=== PATIENT | female | born 1950 | race Caucasian/White ===

== ENCOUNTER 2022-07-20 15:50 | Inpatient (IN) | payer MEDICARE, SELFPAY ==
[2022-07-20] VITALS (8 sets, daily range): BP systolic 148–173; BP diastolic 85–100; PULSE 81–90; RESP 12–18; TEMP 36.4–37.5; O2SAT 95–100; BMI 21.1; BMI 22.1
--- NOTE | 2022-07-20 16:25 | CT_ITS ---
STUDY: CT BRAIN WITHOUT CONTRAST REASON FOR EXAM: Female, 72 years old. confusion,FALLS RADIATION DOSAGE (If Supplied By Facility): CTDIvol = ( 44.99 ) mGy, DLP = ( 796.11 ) mGycm TECHNIQUE: Transaxial CT imaging of the brain was performed without administration of intravenous contrast material. Individualized dose optimization techniques were used for this CT. COMPARISON: No relevant priors. FINDINGS: Normal soft tissue structures. Normal calvarium. There is mild cerebral atrophy with widening of the extra-axial spaces and ventricular dilatation. There are areas of decreased attenuation within the white matter tracts of the supratentorial brain, consistent with microvascular disease changes. Normal basal ganglia and thalami. Normal brainstem. Normal cerebellum. There is no intracranial hemorrhage. There are no findings of an acute ischemic infarction. Normal visualized paranasal sinuses. CT/Brain/Head without Contrast IMPRESSION: Chronic involutional changes of the brain. Electronically Signed: Marcello Saldaña MD at 17:50 EST ,
--- NOTE | 2022-07-20 16:26 | EKG12_ITS ---
Test Reason : Blood Pressure : / mmHG Vent. Rate : 083 BPM Atrial Rate : 083 BPM P-R Int : 204 ms QRS Dur : 074 ms QT Int : 362 ms P-R-T Axes : 062 -71 070 degrees QTc Int : 425 ms Normal sinus rhythm Left axis deviation Pulmonary disease pattern Abnormal ECG Confirmed by MAAME WHITING, JENNY ([id number]), newspaper photo editor ANAMIKA ALMONTE ([id number]) on 07/24/2022 11:10:15 AM Referred By: JEREMY Confirmed By:VIOLET ISABEL MD
--- NOTE | 2022-07-20 16:30 | EX.ED.DYSGE1 ---
HPI History of Present Illness Chief Complaint: Weakness Informant: patient and family Onset/Context/Timing Onset: Weeks Narrative Narrative: Patient presents with family secondary to generalized weakness and increasing falls. They feel she needs placement as they are having trouble caring for her. Daughter states that for the past couple years she apparently has been noncompliant with her medications. She was showing some signs of dementia and family was unaware that she was not taking her medication appropriately. The weekend after she was admitted to [facility] secondary to high blood sugar. At that time arrangements were reportedly made for home physical therapy and Occupational Therapy and family wanted to try to care for her at home. They have only had 1 or 2 visits from any therapists and patient has continued to progress in her weakness. She has fallen this week. I am unable to review the discharge summary or notes from [facility]. [facility] Medical History Diabetes Hyperlipidemia Hypertension Memory changes Home Medications Lantus Solostar U-100 Insulin 15 units OTHER QHS 07/20/22 [History Last Taken Unknown] Lantus Solostar U-100 Insulin 28 units OTHER BREAKFAST 07/20/22 [History Last Taken Unknown] Vitamin D3 1 tab PO/SL DAILY 07/20/22 [History Last Taken Unknown] amlodipine 10 mg PO/SL DAILY 07/20/22 [History Last Taken Unknown] atorvastatin 20 mg PO/SL DAILY 07/20/22 [History Last Taken Unknown] memantine 5 mg PO/SL BID 07/20/22 [History Last Taken Unknown] vitamin L40-zoauv acid 1 tab PO/SL DAILY 07/20/22 [History Last Taken Unknown] Allergy/AdvReac Type Severity Reaction Status Date / Time Penicillins Allergy Rash Verified 07/20/22 15:51 Social History Smoking Status: Never smoker ROS ROS ED Constitutional Constitutional ED: Denies chills or fever(s) Eyes Eyes: Denies change in vision or discharge from eye(s) ENT ENT ED: Denies discharge from eye(s), rhinorrhea or sore throat Cardiovascular Cardiovascular: Denies chest pain or palpitations Respiratory/Chest Respiratory/Chest: Denies cough or dyspnea Gastrointestinal Gastrointestinal: Denies abdominal pain, diarrhea, nausea or vomiting Genitourinary Genitourinary ED: Denies dysuria Musculoskeletal Musculoskeletal: Reports extremity pain; Denies back pain Integumentary Denies Abrasions or rash Neurologic Neurologic: Reports weakness; Denies headache(s) Psychiatric Psychiatric: Denies anxiety or depression Allergic/Immunologic Allergic/Immunologic ED: Denies lip swelling or urticaria EXAM Physical Exam Const Vital Signs: 07/20/22 15:52 07/20/22 16:50 07/20/22 16:54 Temperature 97.5 F L Temperature Source Temporal Pulse Rate 83 84 Respiratory Rate 16 12 Respiratory Effort Normal Non-Labored Respiratory Pattern Normal Blood Pressure 148/100 H 155/85 H Blood Pressure Mean 116 108 Pulse Ox 100 Oxygen Delivery Method Room Air Positive well nourished and well developed General Appearance ED: well developed HEENT Reports normocephalic and head/scalp atraumatic Eyes PERRL and EOMs intact bilaterally Neck supple Chest Wall inspection of chest normal and palpation of chest normal Resp normal respiratory effort and clear to auscultation bilaterally Cardio regular rate and regular rhythm GI normal to inspection, nondistended, normoactive bowel sounds Palpation: soft Back/Spine no CVA tenderness Extremity normal to inspection Neuro no sensory deficits noted Neuro Narrative: Patient alert but slow to answer any questions. Very slow in her movements. Right leg weakness is noted on testing of extremities. Sensorium / Orientation: alert Psych mental status grossly normal Skin no rashes or lesions noted MDM MDM MDM Narrative Medical decision making narrative: EKG, lab work obtained. Patient sent for CT scan of the head and lumbar spine x-rays. IV fluids given. Lab Data Attestation: I reviewed the patient's lab results. Labs: Laboratory Results - last 24 hr 07/20/22 07/20/22 16:52 16:52 WBC 7.9 RBC 4.83 Hgb 13.9 Hct 43.3 MCV 89.6 MCH 28.8 MCHC 32.1 RDW Std Deviation 41.5 RDW Coeff of Baron 12.6 Plt Count 373 MPV 9.3 Immature Gran % (Auto) 0.500 Neut % (Auto) 62.7 Lymph % (Auto) 26.0 Pitkin % (Auto) 8.4 Eos % (Auto) 1.5 Baso % (Auto) 0.9 Absolute Neuts (auto) 4.9 Absolute Lymphs (auto) 2.05 Nucleated RBC % 0 Sodium 137 Potassium 4.8 Chloride 106 Carbon Dioxide 27.0 Anion Gap 4 L BUN 25 H Creatinine 1.04 H Estim Creat Clear Calc 44.00 Est GFR (MDRD) Af Amer 67 Est GFR (MDRD) Non-Af 55 L BUN/Creatinine Ratio 24.0 H Glucose 282 H Calcium 10.1 Radiography Diagnostic Testing: Clinical Impression(s) from Imaging Studies Brain CT 07/20/22 16:25 IMPRESSION: Chronic involutional changes of the brain. Electronically Signed: Marcello Saldaña MD at 17:50 EST Reading Location ID and State: [place] / [place] Tel , Service support , Lumbar Spine X-Ray 07/20/22 17:00 IMPRESSION: Mild dextroscoliosis with degenerative disc disease per Electronically Signed: Marcello Saldaña MD at 17:51 EST Reading Location ID and State: [place] / [place] Tel , Service support , EKG Initial EKG: Attestation: I personally reviewed and interpreted this EKG as follows: Interpretation: Sinus Rhythm (Sinus at 83 with no acute ischemia.) Treatment and Re-Evaluation Narrative: On repeat evaluation patient resting comfortably. Test results discussed with patient and family. CBC is unremarkable. Chemistry studies significant for BUN of 25 and creatinine 1.04. Her blood sugar is 282. Head CT shows chronic changes. Lumbar spine x-rays per my interpretation reveal chronic changes. Radiology interpretation is also reviewed. Patient required 2 person assist to get out of wheelchair and into the bed. She has had significant functional decline at home with falls. She will require therapy and placement. I will speak with hospitalist regarding admission. Discharge Plan Triage Chief Complaint: Weakness ED Provider: Mei Rachel Dx/Rx/DC Orders Clinical Impression: Declining functional status, Falls, Weakness Prescriptions: No Action Lantus Solostar U-100 Insulin 28 units OTHER BREAKFAST Lantus Solostar U-100 Insulin 15 units OTHER QHS Vitamin D3 1 tab PO/SL DAILY amlodipine 10 mg PO/SL DAILY atorvastatin 20 mg PO/SL DAILY memantine 5 mg PO/SL BID vitamin K53-rlroc acid 1 tab PO/SL DAILY Primary Care Provider: Ron Martin Referrals: Ron Martin MD [Primary Care Provider] - Disposition Disposition: Acute Care Hospital [facility]
[2022-07-20] MEDS: 0.9% Normal Saline 1,000 ML 150 ML IV ×2 (16:53→23:34)
[2022-07-20 16:59] LABS: Absolute Lymphocyte Count 2.05 X10^3/uL (0.83-4.51); Absolute Neutrophil Count 4.9 X10^3/uL (2.0-7.7); Basophil# 0.07 X10^3/uL; Basophil% 0.9 % (0-1); Eosinophil# 0.12 X10^3/uL; Eosinophils% 1.5 % (0-5); Hematocrit 43.3 % (37-47); Hemoglobin 13.9 g/dL (12.0-15.0); Lymphocyte # 2.05 X10^3/ul (0.83-4.51); Mean Corp Hgb Conc 32.1 g/dL (32-36); Mean Corpuscular Hgb 28.8 pg (27.0-32.0); Mean Corpuscular Volume 89.6 fL (81-99); Mean Platelet Vol. 9.3 fl (6.2-12.0); Monocyte# 0.66 X10^3/uL; Monocyte% 8.4 % (0-10); NRBC Flagged by Analyzer 0 % (0-5); Neutrophil # 4.93 X10^3/uL (2.7-7.7); Neutrophil % 62.7 % (47-70); Platelet Count 373 K/mm3 (150-450); RBC Distribution Width CV 12.6 % (11.6-14.6); RBC Distribution Width SD 41.5 fl (35.1-43.9); Red Blood Count 4.83 M/mm3 (4.2-5.4); White Blood Count 7.9 K/mm3 (4.4-11.0)
--- NOTE | 2022-07-20 17:00 | RAD_ITS ---
STUDY: X-RAY - LUMBAR SPINE REASON FOR EXAM: Female, 72 years old. right leg weakness TECHNIQUE: 3 view(s) of the lumbar spine were obtained. COMPARISON: None FINDINGS: Normal lumbar lordosis. Mild dextroscoliosis centered at L2/L3. There is a normal alignment of the vertebrae. There is multilevel endplate spondylosis of the lumbar vertebrae. There is multi-level degenerative disc disease with multi-level disc space narrowing. Facet hypertrophy in the lower lumbar spine. The soft tissue structures are unremarkable. RAD/Lumbar Spine 2 or 3 Views IMPRESSION: Mild dextroscoliosis with degenerative disc disease per Electronically Signed: Marcello Saldaña MD at 17:51 EST ,
[2022-07-20 17:34] LABS: Anion Gap 4 (5-15); BUN 25 mg/dL (7-18); Calcium,Total 10.1 mg/dL (8.5-10.1); Chloride 106 mmol/L (98-107); Creatinine, Serum 1.04 mg/dL (0.55-1.02); EST Glomerular Filtration Rate 55 mL/min (>60); Est Glom Filt Rate - Afr Amer 67 mL/min (>60); Glucose 282 mg/dL (74-106); Potassium 4.8 mmol/L (3.5-5.1); Sodium Level 137 mmol/L (136-145)
--- NOTE | 2022-07-20 18:15 | PCM.HP.STD ---
HPI - General General Date of Admission: 07/20/22 Date of Service: 07/20/22 Chief Complaint: Generalised weakness, inability to walk - over the last few days. HPI Narrative LORENA SEN, is a 72 F who presents with the above. Patient is a 72-year-old with past medical history of cognitive impairment, not formally diagnosed with dementia, type II DM who was recently discharged from [facility] on 12 July. Patient had gone in with confusion and was found to have hyperglycemia. Her HbA1c was 19. It was realized that patient was not able to manage her medications at that time. At time of discharge, she was given the option of discharge to [facility]pc facility but family decided to take over her care. Since her discharge, patient has been falling, has had trouble standing and has been confused. She fell 2 days prior to admission in the bathroom. She was sent to the [facility] emergency room, she was felt that she could go home to continue with home PT and OT. Physical therapy evaluated her at home yesterday. Patient was found not to be able to stand on her right leg. She was apparently able to walk a couple of days ago. she has an upcoming neurology appointment with Dr. Bajwa in the [facility] in August 2022. Patient's family is unable to take care of her at this point has she lives with her who is also advancing age. History was obtained mainly from patient's and daughter as patient was confused and oriented only to self. In the ED, vitals showed blood pressure 148/100, heart rate 83, respiratory 15, temperature 97.5, she was saturating 100% on room air. CBCD was unremarkable. CMP showed BUN of 25, creatinine 1.04. Blood sugar was 282. Urine was slightly cloudy, glucose 1000, nitrite negative, leukocyte Estrace 25, WBC 0-5, bacteria 1+ CT of the brain showed chronic delusional changes. Lumbar spine x-ray showed mild dextroscoliosis with degenerative disc disease. [facility] Medical History Diabetes Hyperlipidemia Hypertension Memory changes Home Medications amlodipine 10 mg tablet 10 mg PO DAILY blood pressure 07/20/22 [History Last Taken 07/20/22] atorvastatin 20 mg tablet 20 mg PO DAILY cholesterol 07/20/22 [History Last Taken 07/20/22] cholecalciferol (vitamin D3) 25 mcg (1,000 unit) tablet (Vitamin D3) 25 mcg PO DAILY supplement 07/20/22 [History Last Taken 07/20/22] cyanocobalamin (vitamin B-12) 500 mcg tablet 500 mcg PO DAILY supplement 07/20/22 [History Last Taken 07/20/22] insulin degludec 100 unit/mL (3 mL) subcutaneous pen (Tresiba FlexTouch U-100 insulin) 15 unit subcut QPM DIABETES 07/20/22 [History Last Taken 07/19/22] insulin degludec 100 unit/mL (3 mL) subcutaneous pen (Tresiba FlexTouch U-100 insulin) 28 unit subcut DAILY diabetes 07/20/22 [History Last Taken 07/20/22] memantine 5 mg tablet 5 mg PO BID alzheimers 07/20/22 [History Last Taken 07/20/22] Allergy/AdvReac Type Severity Reaction Status Date / Time Penicillins Allergy Rash Verified 07/20/22 15:51 Family History (Updated 07/20/22 @ 23:[address] Deirdre Kirk MD) Mother CVA (cerebral vascular accident) Father Hodgkins lymphoma Social History (Updated 07/20/22 @ 23:[address] Deirdre Kirk MD) household members: spouse housing: apartment Smoking Status: Never smoker alcohol intake: never ROS Review of Systems ROS Unobtainable: due to encephalopathy Vital Signs Vital Signs Vital Signs: 07/20/22 15:52 07/20/22 16:50 07/20/22 16:54 Temperature 97.5 F L Temperature Source Temporal Pulse Rate 83 84 Respiratory Rate 16 12 Respiratory Effort Normal Non-Labored Respiratory Pattern Normal Blood Pressure 148/100 H 155/85 H Blood Pressure Mean 116 108 Pulse Ox 100 Oxygen Delivery Method Room Air 07/20/22 18:00 Temperature Temperature Source Pulse Rate 81 Respiratory Rate Respiratory Effort Respiratory Pattern Blood Pressure 157/97 H Blood Pressure Mean 117 Pulse Ox Oxygen Delivery Method Weight Weight: 57.606 kg Body Mass Index (BMI) 21.1 Physical Exam Narrative Physical exam: General: Alert, confused, alert oriented only to self, not to place or time HEENT: Atraumatic Oral: Moist Mucosa Neck: Supple Lungs: Diminished to auscultation Cardiovascular: HS I+II, regular, no murmurs Abdomen: Bowel Sounds Present, Soft, Non Tender Extremities: No edema Skin: No rashes, No breakdown Neurological: Cranial nerves II through XII intact, power is 5/5 in upper extremities, power in the upper extremities, normal tone. Power in right lower extremity is 1/5, increased tone Psych/Mental Status: Appropriate Results Lab / Micro Data Result Diagrams: 07/20/22 16:52 07/20/22 16:52 Labs: Laboratory Results - last 24 hr 07/20/22 16:52: WBC 7.9, RBC 4.83, Hgb 13.9, Hct 43.3, MCV 89.6, MCH 28.8, MCHC 32.1, RDW Std Deviation 41.5, RDW Coeff of Baron 12.6, Plt Count 373, MPV 9.3, Immature Gran % (Auto) 0.500, Neut % (Auto) 62.7, Lymph % (Auto) 26.0, Anderson % (Auto) 8.4, Eos % (Auto) 1.5, Baso % (Auto) 0.9, Absolute Neuts (auto) 4.9, Absolute Lymphs (auto) 2.05, Nucleated RBC % 0 07/20/22 16:52: Sodium 137, Potassium 4.8, Chloride 106, Carbon Dioxide 27.0, Anion Gap 4 L, BUN 25 H, Creatinine 1.04 H, Estim Creat Clear Calc 44.00, Est GFR (MDRD) Af Amer 67, Est GFR (MDRD) Non-Af 55 L, BUN/Creatinine Ratio 24.0 H, Glucose 282 H, Calcium 10.[address] 07/20/22 16:25 IMPRESSION: Chronic involutional changes of the brain. Electronically Signed: Marcello Saldaña MD at 17:50 EST Reading Location ID and State: [id number] / [employer] Tel , Service support , Lumbar Spine X-Ray 07/20/22 17:00 IMPRESSION: Mild dextroscoliosis with degenerative disc disease per Electronically Signed: Marcello Saldaña MD at 17:51 EST Reading Location ID and State: [id number] / Tel , Service support , Assessment & Plan Assessment/Plan (1) Weakness: (2) Falls: PLAN: Plan 1. Acute onset of right lower extremity weakness likely secondary to disc herniation Will rule out intracranial pathology Will admit to MedSurg, MRI of the lumbar spine as well as MRI of the brain PT/OT to evaluate and treat 2. Confusion, in a patient with cognitive impairment and will follow history of dementia Brain CT showed chronic changes Will check TSH, vitamin B12, MRI brain Continue on Namenda 3. Type II DM, continue current regimen as well as insulin sliding scale blood glucose checks 4. DVT PPx- Heparin SC I discussed and explained in details the various types of CODE STATUS-full code, DNR CCA, DNR CC. Patient's family stated that patient will want to be a full code and want aggressive cardiopulmonary resuscitation in the event of an arrest. Time spent discussing CODE STATUS 18 minutes Charges/Coding Visit Charges Inpatient E&M: 87829 Init Hosp L3 Procedures Hospitalists Procedures: 27858 Advncd Care Plan 30 Min
[2022-07-20 19:45] LABS: Mucous, Urine 0 SEEN /hpf (<or=2+); Red Blood Cells-Urine 0 SEEN /hpf (0-5)
[2022-07-20 19:56] LABS: Color, Urine Yellow (Yellow); Glucose, Dipstick 1000 mg/dl (Normal); Ketone-Dipstick Negative (Negative); Leukocyte Esterase-Dipstick 25 /ul (Negative); Nitrite-Dipstick Negative (Negative); Occult Blood-Urine Negative /ul (Negative); Protein-Dipstick Negative (Negative); Specific Gravity, Urine 1.015 (1.002-1.030); Urine Bilirubin Dipstick Negative (Negative); Urine Clarity Sl. Cloudy (Clear); Urine Urobilinogen Normal (Normal)
[2022-07-20 20:15] LABS: Bacteria 1+ /hpf (None Seen); Squamous Epithelial Cells - UA 0-5 SEEN /hpf (5-10); White Blood Cells 0-5 SEEN /hpf (0-5); Yeast-Urine 3+ /hpf (None Seen)
[2022-07-20 22:05] LABS: Bedside Glucose 196 mg/dL (74-106)
[2022-07-20] MEDS: Insulin Glargine-YFGN 100 UNIT/ML Pen 15 UNIT SC (23:22)
[2022-07-20] MEDS: Atorvastatin Calcium 20 MG Tablet PO (23:34)
[2022-07-20] MEDS: Heparin Injection (Vial) 5,000 UNIT/ML VIAL 5000 UNIT SC (23:34)
[2022-07-20] MEDS: Memantine Hydrochloride 5 MG Tablet PO (23:34)
[2022-07-20] MEDS: Insulin Lispro 100 UNIT/ML INSULN.PEN SC (23:37)
[2022-07-21] VITALS (7 sets, daily range): BP systolic 133–160; BP diastolic 81–96; PULSE 83–91; RESP 15–20; TEMP 36.4–37.2; O2SAT 95–98; BMI 22.1
[2022-07-21 00:26] LABS: Bedside Glucose 192 mg/dL (74-106)
[2022-07-21 00:53] LABS: Thyroid Stim Hormone (TSH) 1.11 uIU/mL (0.358-3.74)
[2022-07-21] MEDS: 0.9% Normal Saline 1,000 ML 150 ML IV (06:12)
[2022-07-21] MEDS: Heparin Injection (Vial) 5,000 UNIT/ML VIAL 5000 UNIT SC ×3 (06:14→21:48)
[2022-07-21 07:05] LABS: Absolute Lymphocyte Count 2.18 X10^3/uL (0.83-4.51); Absolute Neutrophil Count 4.4 X10^3/uL (2.0-7.7); Basophil# 0.05 X10^3/uL; Basophil% 0.7 % (0-1); Eosinophil# 0.12 X10^3/uL; Eosinophils% 1.7 % (0-5); Hematocrit 41.3 % (37-47); Hemoglobin 13.4 g/dL (12.0-15.0); Lymphocyte # 2.18 X10^3/ul (0.83-4.51); Lymphocyte % 30.3 % (19-41); Mean Corp Hgb Conc 32.4 g/dL (32-36); Mean Corpuscular Hgb 28.7 pg (27.0-32.0); Mean Corpuscular Volume 88.4 fL (81-99); Mean Platelet Vol. 8.8 fl (6.2-12.0); Monocyte# 0.47 X10^3/uL; Monocyte% 6.5 % (0-10); NRBC Flagged by Analyzer 0 % (0-5); Neutrophil # 4.36 X10^3/uL (2.7-7.7); Neutrophil % 60.5 % (47-70); Platelet Count 342 K/mm3 (150-450); RBC Distribution Width CV 12.6 % (11.6-14.6); RBC Distribution Width SD 40.9 fl (35.1-43.9); Red Blood Count 4.67 M/mm3 (4.2-5.4); White Blood Count 7.2 K/mm3 (4.4-11.0)
[2022-07-21 07:25] LABS: Bedside Glucose 195 mg/dL (74-106)
[2022-07-21 07:37] LABS: ALB/GLOB Ratio 0.7 RATIO (0.9-2.4); AST(SGOT) 15 U/L (15-37); Alanine Aminotransfer ALT/SGPT 22 U/L (13-56); Albumin, Serum 2.8 g/dL (3.2-5.0); Alkaline Phosphatase 106 U/L (45-117); Anion Gap 6 (5-15); BUN 17 mg/dL (7-18); BUN/Creat Ratio 21.6 RATIO (10-20); Chloride 106 mmol/L (98-107); Creatinine, Serum 0.79 mg/dL (0.55-1.02); EST Glomerular Filtration Rate 76 mL/min (>60); Est Glom Filt Rate - Afr Amer 92 mL/min (>60); Estimated Creatinine Clearance 43.91 ml/min; Globulin 3.8 g/dL (2.2-4.2); Glucose 212 mg/dL (74-106); Potassium 3.3 mmol/L (3.5-5.1); Protein, Total 6.6 g/dL (6.4-8.2); Sodium Level 137 mmol/L (136-145)
[2022-07-21] MEDS: Potassium Chloride Oral Tablet 20 MEQ 40 MEQ PO (08:38)
[2022-07-21] MEDS: amLODIPine 10 MG Tablet PO (08:38)
[2022-07-21] MEDS: Memantine Hydrochloride 5 MG Tablet PO ×2 (08:38→22:52)
[2022-07-21] MEDS: Insulin Glargine-YFGN 100 UNIT/ML Pen 28 UNIT SC (08:38)
[2022-07-21] MEDS: Cholecalciferol (VIT D3) 25 MCG TABLET (1,000 UNITS) PO (08:38)
[2022-07-21] MEDS: Cyanocobalamin 500 MCG Tablet PO (08:38)
[2022-07-21] MEDS: Insulin Lispro 100 UNIT/ML INSULN.PEN SC ×4 (08:39→22:02)
--- NOTE | 2022-07-21 10:30 | MRI_ITS ---
ACR Level 3 findings have been noted. An addendum which confirms receipt of the report will follow. HISTORY: Generalized weakness, falls. TECHNIQUE: Multiplanar and multisequence MR images of the brain were obtained without contrast. 291 images. COMPARISON: CT prior day. FINDINGS: BRAIN PARENCHYMA: Small zones and foci of restricted diffusion in the left thalamus. Moderate zone of restricted diffusion in the left occipital cortex. Moderate chronic white matter changes. No acute intracranial hemorrhage identified. CSF SPACES: Mild sulcal effacement secondary to cytotoxic edema in the left occipital lobe. Generalized volume loss. No significant midline shift or effacement of the basal cisterns.No extra-axial fluid collection. VASCULAR SYSTEM: Diminutive appearance of the left posterior cerebral artery. OTHER: 1.7 x 1.9 cm round circumscribed mass in the right parotid gland. Bilateral lens resections. 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 Chronic involutional and white matter changes. Electronically Signed: Svetlana Tinajero MD at 11:44 EST ,
--- NOTE | 2022-07-21 10:30 | MRI_ITS ---
HISTORY: weakness TECHNIQUE: Multiplanar and multisequence MR images of the lumbar spine were obtained without intravenous contrast. 116 images. COMPARISON: XR prior day. FINDINGS: VERTEBRAE: Vertebral body heights maintained. Hemangioma incidentally noted in the L1 vertebral body. Mild degenerative endplate changes at multiple levels. ALIGNMENT: Mild dextroscoliosis. No significant anterior or posterior subluxation. CONUS: Normal morphology and position of the conus medullaris at L1. INTERVERTEBRAL DISCS: T12-L1: No significant posterior disc protrusion, central canal stenosis, or foraminal narrowing based on the sagittal images. L1-2: Mild disc bulge and facet arthropathy without significant central canal stenosis or foraminal narrowing. L2-3: Mild disc bulge and facet arthropathy with minimal narrowing of the thecal sac and no significant foraminal narrowing. L3-4: Moderate disc bulge and facet arthropathy superimposed on developmentally short pedicles resulting in moderate central canal stenosis and mild bilateral foraminal narrowing. L4-5: Mild disc bulge eccentric to the right and facet arthropathy superimposed on developmentally short pedicles resulting in mild central canal stenosis and moderate right foraminal narrowing with abutment of the right L4 and L5 nerve roots. L5-S1: Minimal disc bulge with facet arthropathy resulting in mild bilateral foraminal narrowing. No significant central canal stenosis. SOFT TISSUES: No paraspinal fluid collection. MRI/Spine Lumbar (Routine) IMPRESSION: Moderate disc bulge at L3-4 resulting in moderate spinal canal stenosis and mild bilateral foraminal narrowing. Mild disc bulge eccentric to the right at L4-5 resulting in mild spinal canal stenosis, moderate right foraminal narrowing, and probable right nerve root impingement. Electronically Signed: Svetlana Tinajero MD at 11:37 EST ,
[2022-07-21] MEDS: 0.9% Saline Lock 10 ML Syringe IV (11:45)
[2022-07-21 12:05] LABS: Bedside Glucose 316 mg/dL (74-106)
--- NOTE | 2022-07-21 12:21 | NURSING ---
Nursing primer supervisor aware of needing higher acuity of bed. will call back with bed assignment.
--- NOTE | 2022-07-21 12:24 | ECHOD_ITS ---
Reason For Study: TIA/CVA Procedure This was a 2D Doppler, Color Flow transthoracic echocardiogram. Exam performed portable in patient room. Left Ventricle Normal LV size. Left ventricular systolic function is normal. The estimated ejection fraction is 65 %. No regional wall motion abnormalities noted. Right Ventricle Normal RV size. Normal systolic function. Atria Normal left atrium. Normal right atrium. Bubble contrast study negative for right to left interatrial shunt. Mitral Valve Normal mitral valve. Tricuspid Valve Normal tricuspid valve. Aortic Valve Trisinus/trileaflet aortic valve. Great Vessels Normal aortic root. Pericardium/Pleural No pericardial effusion. Medication Performed a rapid injection of agitated mix of 9 cc saline and 1cc air to assess for atrial septal defect. MMode/2D Measurements & Calculations LVIDd: 4.2 cm IVSd: 1.1 cm LAV(MOD-bp): 37.5 ml LVIDs: 2.9 cm LVPWd: 1.0 cm LAV(MOD-bp) Indexed: 23.0 ml/m2 RVDd: 3.1 cm FS: 29.7 % LAV(MOD-sp2): 30.3 ml LAV(MOD-sp4): 36.6 ml LA dimension(2D): 2.5 cm LA A4 area: 14.6 cm2 RA A4 area: 10.0 cm2 Time Measurements MV dec time: 0.37 sec Doppler Measurements & Calculations MV E max sekou: 58.2 cm/sec Lat Peak E' Sekou: 8.7 cm/sec Med Peak E' Sekou: 4.9 cm/sec MV A max sekou: 88.3 cm/sec E/E' lat: 6.7 E/E' med: 11.9 MV E/A: 0.66 MV dec slope: 159.1 cm/sec2 Ao V2 max: 144.1 cm/sec LV V1 max: 113.3 cm/sec Ao max P.3 mmHg LV V1 max P.1 mmHg Ao V2 mean: 109.8 cm/sec LV V1 mean P.5 mmHg Ao mean P.3 mmHg LV V1 mean: 71.5 cm/sec Ao V2 VTI: 30.9 cm LV V1 VTI: 17.7 cm AV (velocity ratio): 0.57 PA V2 max: 106.2 cm/sec ECHO/Echo Complete Interpretation Summary Normal LV size. Left ventricular systolic function is normal. The estimated ejection fraction is 65 %. Bubble contrast study negative for right to left interatrial shunt. Ordering Physician: Sabra Lowe Referring Physician: Ron Martin Performed By: Divine Rodriguez, SEGUNDO, RVT
--- NOTE | 2022-07-21 12:54 | NURSING ---
12:45 pt left [facility] to go to [facility], Report called to Milton CABAN and and daughter made aware that she was moved to a different unit.
[2022-07-21 12:57] LABS: Thyroid Stim Hormone (TSH) 1.27 uIU/mL (0.358-3.74)
--- NOTE | 2022-07-21 12:58 | TELEMED_ITS ---
SOC Telemed has confirmed receipt of a request for visit. This document confirms receipt of the order initiating the consult. To find the results of the consultation, please view the patient's reports for the scanned Telemed Consult.
--- NOTE | 2022-07-21 14:07 | CASEMGMT ---
Social Work SW spoke w/pt at the bedside. Pt at present trying to get out of bed. SW called for the reception interviewer to assist pt, and asked pt for permission to call . Pt agreeable to SW calling , though said he may be working. SW inquired if pt works on Saturday, she states yes. It is noted in the chart that pt has had some memory changes recently, so SW did call . SW called to inquire how pt had been managing at home, and to talk about the anticipated discharge plan. is hard of hearing so SW did not get complete answers to all questions. PCP: Dr. Martin Specialists: None Insurance: [employer] [facility]acy: [facility] [place]: , two daughters Living arrangements/Prior level of function: Pt lives home w/. helps with most ADLs including dressing, bathing, medications, driving. Pt's daughters also help them out at times, they help to organize the medications. LW/POA: Not on file, family had said would bring in, unsure who is named as POA History of HHC/SNF: As per , no history of HHC or SNF SW spoke w/ about plan, he does think pt will need SNF at this time. SW explained will leave a list in the room for he and family, he states that he and one of the daughters will be here this afternoon. SW left list in room for family printed from [facility], that has nursing homes in pt's insurance network, preferred geographic area, complete with quality and resource use data. SW asked to choose a few facilities they would like to consider. SW explained the SW Saturday will follow up for choices, and the SW will make referrals. Once we have a facility that can take pt then insurance authorization will be started. states understanding. SW will follow up w/family for SNF choices and make referral Saturday. THALIA Brennan
--- NOTE | 2022-07-21 14:54 | PN.HOSP_ITS ---
Subjective Subjective No issues overnight. Patient is awake and alert but confused. Only oriented to self. Denies any current needs Objective Data Objective Data Vital Signs: Vital Signs Temp Pulse Resp BP Pulse Ox O2 Del Method 97.7 F L 88 18 160/94 H 96 Room Air 07/21/22 10:00 07/21/22 10:00 07/21/22 10:00 07/21/22 10:00 07/21/22 10:00 07/21/22 10:00 Oxygen Delivery Method Room Air Weight: 59.874 kg Body Mass Index (BMI) 22.1 Intake & Output: Intake and Output for Last 24 Hours 07/19/22 07/20/22 07/21/22 23:59 23:59 23:59 Intake Total 1000 / 1000 995 / 995 Balance 1000 / 1000 995 / 995 Lab / Micro Data Result Diagrams: 07/21/22 06:58 07/21/22 06:58 Labs: Laboratory Results - last 24 hr 07/20/22 16:52: WBC 7.9, RBC 4.83, Hgb 13.9, Hct 43.3, MCV 89.6, MCH 28.8, MCHC 32.1, RDW Std Deviation 41.5, RDW Coeff of Baron 12.6, Plt Count 373, MPV 9.3, Immature Gran % (Auto) 0.500, Neut % (Auto) 62.7, Lymph % (Auto) 26.0, Brule % ( Auto) 8.4, Eos % (Auto) 1.5, Baso % (Auto) 0.9, Absolute Neuts (auto) 4.9, Absolute Lymphs (auto) 2.05, Nucleated RBC % 0 07/20/22 16:52: Sodium 137, Potassium 4.8, Chloride 106, Carbon Dioxide 27.0, Anion Gap 4 L, BUN 25 H, Creatinine 1.04 H, Estim Creat Clear Calc 44.00, Est GFR (MDRD) Af Amer 67, Est GFR (MDRD) Non-Af 55 L, BUN/Creatinine Ratio 24.0 H, Glucose 282 H, Calcium 10.1 07/20/22 16:52: Acetone Level NEGATIVE 07/20/22 16:52: TSH 1.11 07/20/22 19:39: Urine Color Yellow, Urine Clarity Sl. Cloudy, Urine pH 7.0, Ur Specific [place] 1.015, Urine Protein Negative, Urine Glucose (UA) 1000 H, Urine Ketones Negative, Urine Occult Blood Negative, Urine Nitrite Negative, Urine Bilirubin Negative, Urine Urobilinogen Normal, Ur Leukocyte Esterase 25 H, Urine RBC 0 SEEN, Urine WBC 0-5 SEEN, Ur Squamous Epith Cells 0-5 SEEN, Urine Bacteria 1+, Urine Mucus 0 SEEN, Urine Yeast 3+ 07/20/22 21:45: POC Glucose 196 H 07/20/22 23:16: POC Glucose 192 H 07/21/22 06:20: POC Glucose 195 H 07/21/22 06:58: WBC 7.2, RBC 4.67, Hgb 13.4, Hct 41.3, MCV 88.4, MCH 28.7, MCHC 32.4, RDW Std Deviation 40.9, RDW Coeff of Baron 12.6, Plt Count 342, MPV 8.8, Immature Gran % (Auto) 0.300, Neut % (Auto) 60.5, Lymph % (Auto) 30.3, Brule % (Auto) 6.5, Eos % (Auto) 1.7, Baso % (Auto) 0.7, Absolute Neuts (auto) 4.4, Absolute Lymphs (auto) 2.18, Nucleated RBC % 0 07/21/22 06:58: Sodium 137, Potassium 3.3 L, Chloride 106, Carbon Dioxide 25.0, Anion Gap 6, BUN 17, Creatinine 0.79, Estim Creat Clear Calc 43.91, Est GFR (MDRD) Af Amer 92, Est GFR (MDRD) Non-Af 76, BUN/Creatinine Ratio 21.6 H, Gluc ose 212 H, Calcium 9.0, Total Bilirubin 0.50, AST 15, ALT 22, Alkaline Phosphatase 106, Total Protein 6.6, Albumin 2.8 L, Globulin 3.8, Albumin/Globulin Ratio 0.7 L 07/21/22 06:58: TSH 1.27 07/21/22 11:44: POC Glucose 316 H Radiography Diagnostic Testing: Radiology Impression Brain CT 07/20/22 16:25 IMPRESSION: Chronic involutional changes of the brain. Electronically Signed: Marcello Saldaña MD at 17:50 EST , Lumbar Spine X-Ray 07/20/22 17:00 IMPRESSION: Mild dextroscoliosis with degenerative disc disease per Electronically Signed: Marcello Saldaña MD at 17:51 EST , Brain MRI 07/21/22 10:30 IMPRESSION: Acute infarct in the left posterior cerebral artery territory. 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 Chronic involutional and white matter changes. Electronically Signed: Svetlana Tinajero MD at 11:44 EST , ADDENDUM: 07/21/22 1215 IMPRESSION: Acute infarct in the left posterior cerebral artery territory. 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 Chronic involutional and white matter changes. N.B. : Mary Ferrer RN, confirmed on 07/21/2022 12:08:08 (ET) that the healthcare facility has received the radiology report. Electronically Signed: Svetlana Tinajero MD at 11:44 EST , Lumbar Spine MRI 07/21/22 10:30 IMPRESSION: Moderate disc bulge at L3-4 resulting in moderate spinal canal stenosis and mild bilateral foraminal narrowing. Mild disc bulge eccentric to the right at L4-5 resulting in mild spinal canal stenosis, moderate right foraminal narrowing, and probable right nerve root impingement. Electronically Signed: Svetlana Tinajero MD at 11:37 EST , Physical Exam Const alert and no apparent distress Constitutional Narrative: Older white female, sitting up in bed, nursing at bedside, patient appears comfortable and nontoxic, patient oriented only to self HEENT head/scalp atraumatic and moist oral mucous membranes HEENT Narrative: Mild fullness on right side of face, Mallampati 2, mucous membranes are moist, no thrush Head and Scalp: normocephalic Eyes PERRL, EOMs intact bilaterally and conjunctivae normal Eyes Narrative: No scleral icterus Neck no lymphadenopathy and supple Neck Narrative: Trachea midline, no thyroid enlargement Resp normal respiratory effort, no retractions, no use of accessory muscles and clear to auscultation bilaterally Auscultation: Negative for crackles, rhonchi or wheezes Cardio regular rate, regular rhythm, S1 normal heart sound, S2 normal heart sound, no murmurs, no rub, no gallops and no clicks GI normal to inspection, nondistended, normoactive bowel sounds, soft to palpation and non-tender Extremity no clubbing, cyanosis or edema Extremity Narrative: 2+ pedal pulses Neuro moves all extremities, no focal motor deficits and no sensory deficits noted Neuro Narrative: Oriented to self, no focal deficits noted however patient does demonstrate considerable weakness, cranial nerve exam is challenging given baseline dementia and patient not fully understanding directions Psych affect normal Psych Narrative: Pleasantly confused Assessment & Plan Assessment/Plan (1) 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 Dinh on and stated he would not be in to see her until Saturday evening after office Hypokalemia -40 equivalents p.o. potassium -Repeat lab in a.m. -Check a.m. magnesium level Fall/debility/failure to thrive -PT/OT/speech therapy consultation -We will likely need placement upon discharge DM-2 -Continue home insulin but increase nightly basal insulin to 20 units -Sliding scale -Accu-Cheks -Check hemoglobin A1c Hypertension -Continue home amlodipine -Can to monitor -We will allow for some months of hypertension at this time with new stroke noted but may need additional medications as current systolic is 160 -As needed antihypertensives available Hyperlipidemia -Check lipids -Continue home atorvastatin Dementia-Alzheimer's type -Continue home Namenda DVT prophylaxis -Start enoxaparin -SCDs Charges/Coding Visit Charges Inpatient E&M: 19510 Subs Hosp L3
--- NOTE | 2022-07-21 14:57 | CASEMGMT ---
Social Work SW not completing PHQ-9 w/pt as she is not alert and oriented at present. THALIA Brennan
[2022-07-21] MEDS: Aspirin 81 MG TAB.CHEW PO (15:03)
[2022-07-21] MEDS: Senna/Docusate Sodium 1 Tablet 2 TABLET PO (15:03)
[2022-07-21] MEDS: Insulin Glargine-YFGN 100 UNIT/ML Pen 20 UNIT SC (16:24)
[2022-07-21 17:10] LABS: Bedside Glucose 236 mg/dL (74-106)
[2022-07-21] MEDS: Atorvastatin Calcium 20 MG Tablet PO (21:48)
[2022-07-21 23:00] LABS: Bedside Glucose 314 mg/dL (74-106)
[2022-07-22] VITALS (14 sets, daily range): BP systolic 109–144; BP diastolic 72–90; PULSE 79–98; RESP 15–20; TEMP 36.4–36.9; O2SAT 94–97; BMI 22.1
[2022-07-22] MEDS: Heparin Injection (Vial) 5,000 UNIT/ML VIAL 5000 UNIT SC ×3 (06:19→21:53)
[2022-07-22 07:06] LABS: Anion Gap 4 (5-15); BUN 20 mg/dL (7-18); BUN/Creat Ratio 26.9 RATIO (10-20); Calcium,Total 9.4 mg/dL (8.5-10.1); Chloride 108 mmol/L (98-107); Cholesterol 186 mg/dL (200); Creatinine, Serum 0.74 mg/dL (0.55-1.02); EST Glomerular Filtration Rate 81 mL/min (>60); Est Glom Filt Rate - Afr Amer 99 mL/min (>60); Estimated Creatinine Clearance 43.91 ml/min; Glucose 206 mg/dL (74-106); High Density Lipoprotein 37 mg/dL; Potassium 3.7 mmol/L (3.5-5.1); Sodium Level 138 mmol/L (136-145); Triglycerides 203 mg/dL; Very Low Density Lipoprotein 41 mg/dL (5-40)
[2022-07-22 08:35] LABS: Hemoglobin A1c > 14.0 % (3.8-5.6)
[2022-07-22] MEDS: Insulin Lispro 100 UNIT/ML INSULN.PEN SC ×4 (09:12→21:58)
[2022-07-22] MEDS: Insulin Glargine-YFGN 100 UNIT/ML Pen 28 UNIT SC ×2 (09:14→21:58)
[2022-07-22] MEDS: amLODIPine 10 MG Tablet PO (09:16)
[2022-07-22] MEDS: Cholecalciferol (VIT D3) 25 MCG TABLET (1,000 UNITS) PO (09:16)
[2022-07-22] MEDS: Memantine Hydrochloride 5 MG Tablet PO ×2 (09:16→21:53)
[2022-07-22] MEDS: Cyanocobalamin 500 MCG Tablet PO (09:17)
[2022-07-22] MEDS: Aspirin 81 MG TAB.CHEW PO (09:19)
[2022-07-22 09:46] LABS: Bedside Glucose 199 mg/dL (74-106)
[2022-07-22 12:45] LABS: Bedside Glucose 394 mg/dL (74-106)
--- NOTE | 2022-07-22 14:12 | PCM.PN.HOSP ---
Subjective Subjective No issues overnight. Patient denies any current problems. Objective Data Objective Data Vital Signs: Vital Signs Temp Pulse Resp BP Pulse Ox O2 Del Method 98.3 F 87 20 H 133/78 H 96 Room Air 07/22/22 12:20 07/22/22 12:20 07/22/22 12:20 07/22/22 12:20 07/22/22 12:20 07/22/22 12:20 Oxygen Delivery Method Room Air Weight: 60.8 kg Body Mass Index (BMI) 22.1 Intake & Output: Intake and Output for Last 24 Hours 07/20/22 07/21/22 07/22/22 23:59 23:59 23:59 Intake Total 1000 / 1000 2345 / 2345 365 / 365 Output Total 0 / 0 Balance 1000 / 1000 2345 / 2345 365 / 365 Lab / Micro Data Result Diagrams: 07/21/22 06:58 07/22/22 06:05 Labs: Laboratory Results - last 24 hr 07/21/22 16:22: POC Glucose 236 H 07/21/22 21:51: POC Glucose 314 H 07/22/22 06:05: Sodium 138, Potassium 3.7, Chloride 108 H, Carbon Dioxide 26.0, Anion Gap 4 L, BUN 20 H, Creatinine 0.74, Estim Creat Clear Calc 43.91, Est GFR (MDRD) Af Amer 99, Est GFR (MDRD) Non-Af 81, BUN/Creatinine Ratio 26.9 H, Glucose 206 H, Calcium 9.4, Triglycerides 203 H, Cholesterol 186, LDL Cholesterol 108, VLDL Cholesterol 41 H, HDL Cholesterol 37 L 07/22/22 06:05: Hemoglobin A1c > 14.0 H 07/22/22 09:05: POC Glucose 199 H 07/22/22 12:14: POC Glucose 394 H Physical Exam Const alert and no apparent distress Constitutional Narrative: Older white female, sitting up in a chair at the bedside, patient appears comfortable and nontoxic, patient oriented only to self Orientation / Consciousness: confused HEENT head/scalp atraumatic and moist oral mucous membranes HEENT Narrative: Dentition is poor, Mallampati 2, no thrush, mild fullness of right face Resp normal respiratory effort, no retractions, no use of accessory muscles and clear to auscultation bilaterally Auscultation: Negative for crackles, rhonchi or wheezes Cardio regular rate, regular rhythm, S1 normal heart sound, S2 normal heart sound, no murmurs, no rub, no gallops and no clicks GI normal to inspection, nondistended, normoactive bowel sounds, soft to palpation and non-tender Extremity no clubbing, cyanosis or edema Extremity Narrative: 2+ pedal pulses Neuro moves all extremities, no focal motor deficits and no sensory deficits noted Neuro Narrative: Oriented to self, no focal deficits noted however patient does demonstrate considerable weakness, cranial nerve exam is challenging given baseline dementia and patient not fully understanding directions Speech: speech normal Psych Psych Narrative: Pleasantly confused, affect is flat Assessment & Plan Assessment/Plan (1) 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: (2) Falls: (3) Weakness: (4) Declining functional status: (5) Mass of right parotid gland: (6) Hypokalemia: PLAN: Plan 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 -Echo pending for tomorrow -No arrhythmia noted on telemetry -Continue aspirin -Stroke protocol ordered with NIH -Continue home antihypertensives -LDL is above goal at 108 will increase Lipitor from 20 to 40 mg -Hemoglobin A1c is markedly abnormal at greater than 14 -Blood sugars are improving however fasting is still higher than I would like -PT/OT/speech therapy following -Monitor on telemetry--> if no arrhythmia identified will need outpatient event monitor at discharge -SOC recommendations noted and lab including ESR/CRP/B12 and EEG were ordered -We will hold off on Plavix initiation until patient is seen by ENT as biopsy is likely warranted if family would like to proceed -Plavix was recommended for 3 weeks duration with dual antiplatelet therapy -Patient will let the need event monitor at discharge as she has had no cardiac arrhythmia at this time Right parotid gland mass -Noted on MRI -Documented as suspicious for neoplasm -Will need biopsy -ENT consulted-->Dr. Dinh on and stated he would not be in to see her until Saturday evening after office Hypokalemia - resolved Fall/debility/failure to thrive -PT/OT/speech therapy following -We will likely need placement upon discharge DM-2 -We will increase basal insulin to 28 units therefore she will be on basal insulin 28 units twice daily -Continue to monitor for prandial needs -Continue sliding scale -Accu-Cheks -A1c is greater than 14 and I suspect this is related to her dementia and inability of care for herself at home Hypertension -Continue home amlodipine -Blood pressure is close to goal but still greater than 130/80 -Add low-dose lisinopril at 2.5 mg -As needed antihypertensives available Hyperlipidemia -LDL is above goal and therefore atorvastatin was increased -Glycerides are slightly high but I suspect this is related to her uncontrolled blood sugars Dementia-Alzheimer's type -Continue home Namenda DVT prophylaxis -3 times daily Heparin -SCDs Charges/Coding Visit Charges Inpatient E&M: 66429 Subs Hosp L2
[2022-07-22 15:02] LABS: Erythrocyte Sedimentation Rate 37 mm/hr (0-30)
[2022-07-22] MEDS: Lisinopril 2.5 MG Tablet PO (15:27)
[2022-07-22 16:04] LABS: CRP < 2.90 mg/L (0.0-3.0)
[2022-07-22 17:51] LABS: Bedside Glucose 240 mg/dL (74-106)
[2022-07-22] MEDS: Atorvastatin Calcium 40 MG Tablet PO (21:55)
[2022-07-23] VITALS (17 sets, daily range): BP systolic 104–123; BP diastolic 71–84; PULSE 73–83; RESP 12–17; TEMP 36.4–37.2; O2SAT 93–99; BMI 22.1
[2022-07-23 00:21] LABS: Bedside Glucose 189 mg/dL (74-106)
[2022-07-23] MEDS: Heparin Injection (Vial) 5,000 UNIT/ML VIAL 5000 UNIT SC ×3 (06:41→22:15)
[2022-07-23] MEDS: 0.9% Saline Lock 10 ML Syringe IV (06:42)
[2022-07-23 06:55] LABS: Absolute Lymphocyte Count 3.32 X10^3/uL (0.83-4.51); Absolute Neutrophil Count 3.8 X10^3/uL (2.0-7.7); Basophil# 0.08 X10^3/uL; Eosinophils% 2.5 % (0-5); Hemoglobin 13.2 g/dL (12.0-15.0); Lymphocyte # 3.32 X10^3/ul (0.83-4.51); Lymphocyte % 41.3 % (19-41); Mean Corp Hgb Conc 32.2 g/dL (32-36); Mean Corpuscular Hgb 29.1 pg (27.0-32.0); Mean Corpuscular Volume 90.5 fL (81-99); Mean Platelet Vol. 9.2 fl (6.2-12.0); Monocyte# 0.62 X10^3/uL; Monocyte% 7.7 % (0-10); NRBC Flagged by Analyzer 0 % (0-5); Neutrophil # 3.78 X10^3/uL (2.7-7.7); Neutrophil % 47.1 % (47-70); Platelet Count 362 K/mm3 (150-450); RBC Distribution Width CV 12.8 % (11.6-14.6); RBC Distribution Width SD 42.2 fl (35.1-43.9); Red Blood Count 4.53 M/mm3 (4.2-5.4)
[2022-07-23 07:05] LABS: Bedside Glucose 118 mg/dL (74-106)
[2022-07-23 07:15] LABS: Anion Gap 5 (5-15); BUN 26 mg/dL (7-18); BUN/Creat Ratio 29.6 RATIO (10-20); Calcium,Total 9.5 mg/dL (8.5-10.1); Chloride 107 mmol/L (98-107); Creatinine, Serum 0.88 mg/dL (0.55-1.02); EST Glomerular Filtration Rate 67 mL/min (>60); Est Glom Filt Rate - Afr Amer 81 mL/min (>60); Glucose 122 mg/dL (74-106); Potassium 3.7 mmol/L (3.5-5.1); Sodium Level 139 mmol/L (136-145)
[2022-07-23] MEDS: Insulin Glargine-YFGN 100 UNIT/ML Pen 28 UNIT SC ×2 (08:24→22:19)
[2022-07-23] MEDS: Aspirin 81 MG TAB.CHEW PO (08:24)
[2022-07-23] MEDS: Memantine Hydrochloride 5 MG Tablet PO ×2 (08:26→22:15)
[2022-07-23] MEDS: Cholecalciferol (VIT D3) 25 MCG TABLET (1,000 UNITS) PO (08:26)
[2022-07-23] MEDS: amLODIPine 10 MG Tablet PO (08:26)
[2022-07-23] MEDS: Lisinopril 2.5 MG Tablet PO (08:27)
[2022-07-23] MEDS: Cyanocobalamin 500 MCG Tablet PO (08:27)
[2022-07-23 09:53] LABS: Vitamin B12 513 pg/mL (211-911)
[2022-07-23 09:59] LABS: Vitamin B12 622 pg/mL (211-911)
--- NOTE | 2022-07-23 10:30 | PN.HOSP_ITS ---
Subjective Subjective Patient seen and examined. She had no active complaints and was calmly lying in bed. Review of systems is otherwise negative. She is awaiting evaluation by ENT today for biopsy of right parotid mass. Objective Data Objective Data Vital Signs: Vital Signs Temp Pulse Resp BP Pulse Ox O2 Del Method 98.3 F 76 16 107/71 96 Room Air 07/23/22 10:00 07/23/22 10:00 07/23/22 10:00 07/23/22 10:00 07/23/22 10:00 07/23/22 10:00 Oxygen Delivery Method Room Air Weight: 130 lb 15.273 oz Body Mass Index (BMI) 22.1 Intake & Output: Intake and Output for Last 24 Hours 07/21/22 07/22/22 07/23/22 23:59 23:59 23:59 Intake Total 2345 / 2345 605 / 605 Output Total 0 / 0 0 / 0 Balance 2345 / 2345 605 / 605 0 / 0 Lab / Micro Data Result Diagrams: 07/23/22 06:06 07/23/22 06:06 Labs: Laboratory Results - last 24 hr 07/21/22 06:58: Vitamin B12 622 07/22/22 06:05: C-React Prot Ext Range < 2.90 07/22/22 12:14: POC Glucose 394 H 07/22/22 14:53: ESR 37 H 07/22/22 17:27: POC Glucose 240 H 07/22/22 21:57: POC Glucose 189 H 07/23/22 06:06: Vitamin B12 513 07/23/22 06:06: WBC 8.0, RBC 4.53, Hgb 13.2, Hct 41.0, MCV 90.5, MCH 29.1, MCHC 32.2, RDW Std Deviation 42.2, RDW Coeff of Baron 12.8, Plt Count 362, MPV 9.2, Immature Gran % (Auto) 0.400, Neut % (Auto) 47.1, Lymph % (Auto) 41.3 H, Edgar % (Auto) 7.7, Eos % (Auto) 2.5, Baso % (Auto) 1.0, Absolute Neuts (auto) 3.8, Absolute Lymphs (auto) 3.32, Nucleated RBC % 0 07/23/22 06:06: Sodium 139, Potassium 3.7, Chloride 107, Carbon Dioxide 27.0, Anion Gap 5, BUN 26 H, Creatinine 0.88, Estim Creat Clear Calc 49.90, Est GFR (MDRD) Af Amer 81, Est GFR (MDRD) Non-Af 67, BUN/Creatinine Ratio 29.6 H, Glucose 122 H, Calcium 9.5 07/23/22 06:34: POC Glucose 118 H Physical Exam Const oriented x3 and no apparent distress HEENT head/scalp atraumatic, moist oral mucous membranes and oropharynx normal HEENT Narrative: firm right parotid mass palpable, nontender Head and Scalp: normocephalic Mouth: oral and palatal mucosa normal Eyes EOMs intact bilaterally and conjunctivae normal Neck no lymphadenopathy, supple and no JVD Resp normal respiratory effort, no retractions, no use of accessory muscles and clear to auscultation bilaterally Cardio regular rate, regular rhythm, S1 normal heart sound, S2 normal heart sound and no murmurs GI normal to inspection, nondistended, normoactive bowel sounds, soft to palpation and non-tender Extremity normal to inspection, full ROM and no clubbing, cyanosis or edema Neuro oriented x3, CN's II-XII intact bilaterally, moves all extremities and no focal motor deficits Sensorium / Orientation: awake and alert Motor Exam: strength 5/5 throughout Psych affect normal Assessment & Plan Assessment/Plan (1) Mass of right parotid gland: (2) 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 * will benefit from event monitor at time of discharge * #Right parotid gland mass * as per MRI, which showed a 1.9cm parotid mass, suspicious for neoplasm * awaiting evaluation by ENT and biopsy * #Debility and failure to thrive * due to stroke as well as dementia and spinal stenosis * PT/OT on board. * fall precautions * #TYpe 2 diabetes mellitus * Lantus increased to 28 units twice daily. Insulin sliding scale. Accu-Cheks ACH S. * A1c was more than 14. * #hypertension: On amlodipine. Lisinopril 2.5 mg added on. IV hydralazine as needed. #Hyperlipidemia: On statin #Spinal stenosis * Has moderate disc bulge at L3-4 resulting in moderate spinal stenosis and mild bilateral foraminal narrowing with mild disc bulge eccentric to the right at L4-5 resulting in mild spinal canal stenosis, moderate right foraminal narrowing and probable right nerve root impingement. * PT/OT on board. * Fall precautions * follow up with spinal surgery on outpatient basis * #Alzheimer's dementia: On Namenda. DVT prophylaxis: Heparin Charges/Coding Visit Charges Inpatient E&M: 30981 Subs Hosp L2
--- NOTE | 2022-07-23 11:06 | CASEMGMT ---
Addendum entered by Yeny Miranda 07/23/22 13:02: MACO met with patient, patient's daughter and patient's . Patient's daughter explained they had decided as a family they wanted a referral sent to [facility] so they could visit and bring their dogs to visit. They explained her second choice is [facility] and their third choice was [facility] in [place]. Patient's daughter inquired about changes in placement once she would be placed at a facility. SW explained that they would have to work with the facility to change placement if they make that choice. MACO explained a referral would be sent to [facility] to see if they could accept the patient and then the insurance would have to approve the facility as well. Patient's family reported an understanding. LIZ Ramirez,VANESSA Original Note: MACO DEWEY met with patient, patient's and patient's daughter to explore opinions about SNF placements. Patient's daughter explained they were talking about placements but wanted to tour the facilities before making a choice. Patient's voiced he was currently interested in [facility] and [facility] due to them both having a better rating and being located in [place]. Patient's daughter and stated they would call patient's other daughter to make sure they were all in agreement about the placement before SW can send referrals. MACO explained she would check back in later to give them the opportunity to discuss options as a family. VANESSA Bain
[2022-07-23 11:15] LABS: Bedside Glucose 207 mg/dL (74-106)
[2022-07-23] MEDS: Insulin Lispro 100 UNIT/ML INSULN.PEN SC ×3 (11:30→22:19)
--- NOTE | 2022-07-23 13:28 | CASEMGMT ---
MACO sent a referral to [facility] via [facility]. Nai MENDEZ
--- NOTE | 2022-07-23 14:14 | CASEMGMT ---
MACO called [facility] regarding referral. MACO was asked to please fax referral as well. MACO faxed referral. Await response. Nai MENDEZ
[2022-07-23 17:10] LABS: Bedside Glucose 267 mg/dL (74-106)
[2022-07-23] MEDS: Atorvastatin Calcium 40 MG Tablet PO (22:15)
[2022-07-23 22:45] LABS: Bedside Glucose 267 mg/dL (74-106)
[2022-07-24] VITALS (13 sets, daily range): BP systolic 123–135; BP diastolic 71–97; PULSE 75–85; RESP 16–18; TEMP 36.4–36.7; O2SAT 92–98; BMI 22.1
[2022-07-24] MEDS: Heparin Injection (Vial) 5,000 UNIT/ML VIAL 5000 UNIT SC ×3 (05:08→22:09)
[2022-07-24 06:03] LABS: Absolute Neutrophil Count 3.9 X10^3/uL (2.0-7.7); Basophil# 0.07 X10^3/uL; Basophil% 0.9 % (0-1); Eosinophil# 0.18 X10^3/uL; Eosinophils% 2.3 % (0-5); Hematocrit 42.3 % (37-47); Hemoglobin 13.4 g/dL (12.0-15.0); Lymphocyte % 39.6 % (19-41); Mean Corp Hgb Conc 31.7 g/dL (32-36); Mean Corpuscular Hgb 28.6 pg (27.0-32.0); Mean Corpuscular Volume 90.4 fL (81-99); Monocyte# 0.57 X10^3/uL; Monocyte% 7.3 % (0-10); NRBC Flagged by Analyzer 0 % (0-5); Neutrophil # 3.86 X10^3/uL (2.7-7.7); Neutrophil % 49.4 % (47-70); Platelet Count 324 K/mm3 (150-450); RBC Distribution Width CV 12.8 % (11.6-14.6); RBC Distribution Width SD 41.9 fl (35.1-43.9); Red Blood Count 4.68 M/mm3 (4.2-5.4); White Blood Count 7.8 K/mm3 (4.4-11.0)
[2022-07-24] MEDS: Insulin Lispro 100 UNIT/ML INSULN.PEN SC ×3 (06:27→22:09)
[2022-07-24 06:42] LABS: Anion Gap 5 (5-15); BUN 22 mg/dL (7-18); Calcium,Total 9.6 mg/dL (8.5-10.1); Chloride 107 mmol/L (98-107); Creatinine, Serum 0.92 mg/dL (0.55-1.02); EST Glomerular Filtration Rate 64 mL/min (>60); Est Glom Filt Rate - Afr Amer 78 mL/min (>60); Estimated Creatinine Clearance 47.73 ml/min; Glucose 193 mg/dL (74-106); Potassium 3.9 mmol/L (3.5-5.1); Sodium Level 138 mmol/L (136-145)
[2022-07-24 06:46] LABS: Bedside Glucose 165 mg/dL (74-106)
[2022-07-24] MEDS: Aspirin 81 MG TAB.CHEW PO (08:11)
[2022-07-24] MEDS: Insulin Glargine-YFGN 100 UNIT/ML Pen 28 UNIT SC ×2 (08:11→22:10)
[2022-07-24] MEDS: amLODIPine 10 MG Tablet PO (08:12)
[2022-07-24] MEDS: Cyanocobalamin 500 MCG Tablet PO (08:12)
[2022-07-24] MEDS: Lisinopril 2.5 MG Tablet PO (08:12)
[2022-07-24] MEDS: Cholecalciferol (VIT D3) 25 MCG TABLET (1,000 UNITS) PO (08:12)
[2022-07-24] MEDS: Memantine Hydrochloride 5 MG Tablet PO ×2 (08:12→22:09)
--- NOTE | 2022-07-24 10:44 | PN.HOSP_ITS ---
Subjective Subjective Patient seen and examined. She has no active complaints today and had an uneventful night. Review of systems is otherwise negative. She has remained hemodynamically stable. Objective Data Objective Data Vital Signs: Vital Signs Temp Pulse Resp BP Pulse Ox O2 Del Method 97.9 F 75 16 135/97 H 96 Room Air 07/24/22 07:45 07/24/22 07:45 07/24/22 07:45 07/24/22 07:45 07/24/22 08:05 07/24/22 08:05 Oxygen Delivery Method Room Air Weight: 131 lb 6.328 oz Body Mass Index (BMI) 22.1 Intake & Output: Intake and Output for Last 24 Hours 07/22/22 07/23/22 07/24/22 23:59 23:59 23:59 Intake Total 605 / 605 720 / 720 120 / 120 Output Total 0 / 0 1150 / 1150 300 / 300 Balance 605 / 605 -430 / -430 -180 / -180 Lab / Micro Data Result Diagrams: 07/24/22 05:54 07/24/22 05:54 Labs: Laboratory Results - last 24 hr 07/23/22 10:57: POC Glucose 207 H 07/23/22 16:45: POC Glucose 267 H 07/23/22 22:18: POC Glucose 267 H 07/24/22 05:54: WBC 7.8, RBC 4.68, Hgb 13.4, Hct 42.3, MCV 90.4, MCH 28.6, MCHC 31.7 L, RDW Std Deviation 41.9, RDW Coeff of Baron 12.8, Plt Count 324, MPV 9.0, Immature Gran % (Auto) 0.500, Neut % (Auto) 49.4, Lymph % (Auto) 39.6, [place] % (Auto) 7.3, Eos % (Auto) 2.3, Baso % (Auto) 0.9, Absolute Neuts (auto) 3.9, Absolute Lymphs (auto) 3.10, Nucleated RBC % 0 07/24/22 05:54: Sodium 138, Potassium 3.9, Chloride 107, Carbon Dioxide 26.0, Anion Gap 5, BUN 22 H, Creatinine 0.92, Estim Creat Clear Calc 47.73, Est GFR (MDRD) Af Amer 78, Est GFR (MDRD) Non-Af 64, BUN/Creatinine Ratio 24.0 H, Glucose 193 H, Calcium 9.6 07/24/22 06:26: POC Glucose 165 H Radiography Diagnostic Testing: Radiology Impression Echocardiogram 07/21/22 12:24 Interpretation Summary Normal LV size. Left ventricular systolic function is normal. The estimated ejection fraction is 65 %. Bubble contrast study negative for right to left interatrial shunt. Ordering Physician: Sabra Lowe Referring Physician: Ron Martin Performed By: Divine Rodriguez, SEGUNDO, RVT Physical Exam Const alert, oriented x3 and no apparent distress Orientation / Consciousness: confused HEENT head/scalp atraumatic, moist oral mucous membranes and oropharynx normal Head and Scalp: normocephalic Mouth: oral and palatal mucosa normal Eyes PERRL, EOMs intact bilaterally and conjunctivae normal Neck no lymphadenopathy, supple and no JVD Resp normal respiratory effort, no retractions, no use of accessory muscles and clear to auscultation bilaterally Auscultation: Negative for crackles, rhonchi or wheezes Cardio regular rate, regular rhythm, S1 normal heart sound, S2 normal heart sound, no murmurs, no rub, no gallops and no clicks GI normal to inspection, nondistended, normoactive bowel sounds, soft to palpation and non-tender Extremity normal to inspection, full ROM and no clubbing, cyanosis or edema Extremity Narrative: 2+ pedal pulses Neuro CN's II-XII intact bilaterally, moves all extremities, no focal motor deficits and no sensory deficits noted Neuro Narrative: flat affect Sensorium / Orientation: awake and alert Speech: speech normal Motor Exam: strength 5/5 throughout Psych Psych Narrative: flat affect Assessment & Plan Assessment/Plan (1) Mass of right parotid gland: (2) 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 * will benefit from event monitor at time of discharge * #Right parotid gland mass * as per MRI, which showed a 1.9cm parotid mass, suspicious for neoplasm * awaiting evaluation by ENT and biopsy * #Debility and failure to thrive * due to stroke as well as dementia and spinal stenosis * PT/OT on board. * fall precautions * #TYpe 2 diabetes mellitus * Lantus increased to 28 units twice daily. Insulin sliding scale. Accu-Cheks ACH S. * A1c was more than 14. * #hypertension: On amlodipine and lisinopril 2.5mg daily. IV hydralazine as needed. #Hyperlipidemia: On statin #Spinal stenosis * Has moderate disc bulge at L3-4 resulting in moderate spinal stenosis and mild bilateral foraminal narrowing with mild disc bulge eccentric to the right at L4-5 resulting in mild spinal canal stenosis, moderate right foraminal narrowing and probable right nerve root impingement. * PT/OT on board. * Fall precautions * follow up with spinal surgery on outpatient basis * #Alzheimer's dementia: On Namenda. DVT prophylaxis: Heparin Disposition: will need placement Charges/Coding Visit Charges Inpatient E&M: 10637 Subs Hosp L2
[2022-07-24 11:15] LABS: Bedside Glucose 230 mg/dL (74-106)
--- NOTE | 2022-07-24 11:36 | CASEMGMT ---
MAOC has note heard back from [facility]. SW called and was told they are reviewing patient's case now. She will give SW a call back in about an hour. SW did let her know patient is ready for discharge. Plan: SNF pending accepting facility and insurance approval. Nai MENDEZ
--- NOTE | 2022-07-24 14:41 | CASEMGMT ---
MACO still has not heard from [facility]. MACO called back and was told someone from admissions will call MACO back. Nai Aleman BILLING AND INSURANCE COORDINATOR VANESSA
--- NOTE | 2022-07-24 15:24 | CASEMGMT ---
Patient was accepted at [facility]. Noemi will start pre-cert. MACO will notify family. Plan: d/c to [facility] pending insurance approval. Nai MENDEZ
--- NOTE | 2022-07-24 15:27 | CASEMGMT ---
MACO called patient's daughter Mei and left her a voice mail letting her know patient was accepted at [facility]. MACO let her know patient will stay at [facility] until insurance approves, which may be tomorrow. MACO also called patient's and told him the same. Plan: [facility] pending insurance approval. Nai MENDEZ
--- NOTE | 2022-07-24 15:32 | CON.PCM_ITS ---
Assessment & Plan Assessment/Plan (1) Mass of right parotid gland: PLAN: Plan 1.6 cm right parotid mass -unable to be readily palpated on exam, likely benign deep lobe mass that has been there for some time. recent neuro pathology takes precedence. 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 the patient has no symptoms of this, and has not felt any masses. [facility], [facility] Medical History (Updated 07/21/22 @ 14:[address] Sabra Lowe DO) Diabetes Hyperlipidemia Hypertension Memory changes Home Medications amlodipine 10 mg tablet 10 mg PO DAILY blood pressure 07/20/22 [History Last Taken 07/20/22] atorvastatin 20 mg tablet 20 mg PO DAILY cholesterol 07/20/22 [History Last Taken 07/20/22] cholecalciferol (vitamin D3) 25 mcg (1,000 unit) tablet (Vitamin D3) 25 mcg PO DAILY supplement 07/20/22 [History Last Taken 07/20/22] cyanocobalamin (vitamin B-12) 500 mcg tablet 500 mcg PO DAILY supplement 07/20/22 [History Last Taken 07/20/22] insulin degludec 100 unit/mL (3 mL) subcutaneous pen (Tresiba FlexTouch U-100 insulin) 15 unit subcut QPM DIABETES 07/20/22 [History Last Taken 07/19/22] insulin degludec 100 unit/mL (3 mL) subcutaneous pen (Tresiba FlexTouch U-100 insulin) 28 unit subcut DAILY diabetes 07/20/22 [History Last Taken 07/20/22] memantine 5 mg tablet 5 mg PO BID alzheimers 07/20/22 [History Last Taken 07/20/22] Allergy/AdvReac Type Severity Reaction Status Date / Time Penicillins Allergy Rash Verified 07/20/22 15:51 Family History (Updated 07/20/22 @ 23:[address] Deirdre Kirk MD) Mother CVA (cerebral vascular accident) Father Hodgkins lymphoma Surgical History (Updated 07/21/22 @ 10:00 by Vivienne Rachel) History of cholecystectomy History of hysterectomy Social History (Updated 07/20/22 @ 23:[address] Deirdre Kirk MD) household members: spouse housing: apartment Smoking Status: Never smoker alcohol intake: never Physical Exam Const alert General Appearance: cooperative HEENT normocephalic HEENT Narrative: no overt preauricular mass palpated. facial nerve intact. Face and Sinus: normal facial exam Nose: external nose normal External Ear: external ears normal Mouth: oral and palatal mucosa normal Lab / Micro Data Result Diagrams: 07/24/22 05:54 07/24/22 05:54 Labs: Laboratory Results - last 24 hr 07/23/22 16:45: POC Glucose 267 H 07/23/22 22:18: POC Glucose 267 H 07/24/22 05:54: WBC 7.8, RBC 4.68, Hgb 13.4, Hct 42.3, MCV 90.4, MCH 28.6, MCHC 31.7 L, RDW Std Deviation 41.9, RDW Coeff of Baron 12.8, Plt Count 324, MPV 9.0, Immature Gran % (Auto) 0.500, Neut % (Auto) 49.4, Lymph % (Auto) 39.6, [place] % (Auto) 7.3, Eos % (Auto) 2.3, Baso % (Auto) 0.9, Absolute Neuts (auto) 3.9, Absolute Lymphs (auto) 3.10, Nucleated RBC % 0 07/24/22 05:54: Sodium 138, Potassium 3.9, Chloride 107, Carbon Dioxide 26.0, Anion Gap 5, BUN 22 H, Creatinine 0.92, Estim Creat Clear Calc 47.73, Est GFR (MDRD) Af Amer 78, Est GFR (MDRD) Non-Af 64, BUN/Creatinine Ratio 24.0 H, Glucose 193 H, Calcium 9.6 07/24/22 06:26: POC Glucose 165 H 07/24/22 10:54: POC Glucose 230 H Radiology Impression Echocardiogram 07/21/22 12:24 Interpretation Summary Normal LV size. Left ventricular systolic function is normal. The estimated ejection fraction is 65 %. Bubble contrast study negative for right to left interatrial shunt. Ordering Physician: Sabra Lowe Referring Physician: Ron Martin Performed By: Divine Rodriguez RDCS, RVT
[2022-07-24] MEDS: Clopidogrel Bisulfate 75 MG Tablet PO (17:38)
[2022-07-24 19:25] LABS: Bedside Glucose 77 mg/dL (74-106)
[2022-07-24] MEDS: Atorvastatin Calcium 40 MG Tablet PO (22:09)
[2022-07-24 22:55] LABS: Bedside Glucose 213 mg/dL (74-106)
[2022-07-25] VITALS (7 sets, daily range): BP systolic 115–142; BP diastolic 65–79; PULSE 68–85; RESP 14–16; TEMP 36.6; O2SAT 94–98; BMI 22.1
[2022-07-25 05:12] LABS: Absolute Lymphocyte Count 3.02 X10^3/uL (0.83-4.51); Absolute Neutrophil Count 4.4 X10^3/uL (2.0-7.7); Basophil# 0.07 X10^3/uL; Basophil% 0.8 % (0-1); Eosinophil# 0.19 X10^3/uL; Eosinophils% 2.3 % (0-5); Hematocrit 46.6 % (37-47); Hemoglobin 14.9 g/dL (12.0-15.0); Lymphocyte # 3.02 X10^3/ul (0.83-4.51); Lymphocyte % 35.9 % (19-41); Mean Corpuscular Hgb 28.9 pg (27.0-32.0); Mean Corpuscular Volume 90.5 fL (81-99); Mean Platelet Vol. 9.4 fl (6.2-12.0); Monocyte# 0.73 X10^3/uL; Monocyte% 8.7 % (0-10); NRBC Flagged by Analyzer 0 % (0-5); Neutrophil # 4.36 X10^3/uL (2.7-7.7); Neutrophil % 51.8 % (47-70); Platelet Count 351 K/mm3 (150-450); RBC Distribution Width CV 12.7 % (11.6-14.6); RBC Distribution Width SD 41.7 fl (35.1-43.9); Red Blood Count 5.15 M/mm3 (4.2-5.4); White Blood Count 8.4 K/mm3 (4.4-11.0)
[2022-07-25 05:41] LABS: Anion Gap 7 (5-15); BUN 15 mg/dL (7-18); BUN/Creat Ratio 20.3 RATIO (10-20); Calcium,Total 9.7 mg/dL (8.5-10.1); Chloride 108 mmol/L (98-107); Creatinine, Serum 0.74 mg/dL (0.55-1.02); EST Glomerular Filtration Rate 82 mL/min (>60); Est Glom Filt Rate - Afr Amer 99 mL/min (>60); Estimated Creatinine Clearance 43.91 ml/min; Glucose 130 mg/dL (74-106); Potassium 3.8 mmol/L (3.5-5.1); Sodium Level 137 mmol/L (136-145)
[2022-07-25] MEDS: Insulin Lispro 100 UNIT/ML INSULN.PEN SC ×2 (06:33→11:17)
[2022-07-25] MEDS: Heparin Injection (Vial) 5,000 UNIT/ML VIAL 5000 UNIT SC ×2 (06:38→15:01)
[2022-07-25 07:05] LABS: Bedside Glucose 166 mg/dL (74-106)
[2022-07-25] MEDS: Lisinopril 2.5 MG Tablet PO (09:59)
[2022-07-25] MEDS: Cholecalciferol (VIT D3) 25 MCG TABLET (1,000 UNITS) PO (09:59)
[2022-07-25] MEDS: Cyanocobalamin 500 MCG Tablet PO (09:59)
[2022-07-25] MEDS: Memantine Hydrochloride 5 MG Tablet PO (10:00)
[2022-07-25] MEDS: amLODIPine 10 MG Tablet PO (10:00)
[2022-07-25] MEDS: Aspirin 81 MG TAB.CHEW PO (10:00)
[2022-07-25] MEDS: Clopidogrel Bisulfate 75 MG Tablet PO (10:01)
[2022-07-25] MEDS: Insulin Glargine-YFGN 100 UNIT/ML Pen 28 UNIT SC (11:16)
--- NOTE | 2022-07-25 11:47 | CASEMGMT ---
SW received a voice mail from patient's daughter, Mei yesterday. She asked SW to call her back as she had questions. SW called Mei back and left her a voice mail. Plan: d/c to [facility] pending insurance approval. Nai MENDEZ
--- NOTE | 2022-07-25 12:51 | CASEMGMT ---
MACO received a call from Noemi with [facility]. Patient was approved. MACO called patient's daughter, Mei and let her know this information. SW answered her questions. MACO told her [employer] Medicare coverage and that after day 20 there is a daily co-pay of $184. SW let her know she may want to discuss Medicaid with the Grinding And Spraying Supervisor at the shelter. SW also let her know they should get clothes together as patient will be able to wear regular clothes. She asked if she could talk to the physician and MACO told her SW will pass along the message. MACO told Mei that SW will call her when a time has been set up. SW notified physician and she will attempt to call patient's daughter. Plan: d/c to [facility] under skilled level of care. Nai MENDEZ
[2022-07-25 13:16] LABS: Bedside Glucose 254 mg/dL (74-106)
--- NOTE | 2022-07-25 13:47 | TREXTCAR_ITS ---
Diet Diet Order/Speech Therapy: 07/21/22 13:48 Diet: Consistent Carb - Calorie Controlled Is pt able to select menu?: Yes Diet Comments: TOTAL FEED; Meds crushed with puree; Feed only when ALERT How many daily calories?: 1800 calorie Routine Orders/Code Status Enema Type: Fleetz Enema Frequency: Daily PRN Suppository Type: Dulcolax 10mg Suppository Frequency: Daily PRN O2 Frequency: PRN Keep PO Greater than or Equal to (%): 90 Therapies Weight Bearing: Weight bearing as tolerated Physical Therapy: Eval and Treat Occupational Therapy: Eval and Treat Problem/Diagnosis (1) Mass of right parotid gland: Status: Acute Code(s): K11.8 - Other diseases of salivary glands (2) Acute left PRN PHYSICAL THERAPIST stroke: Status: Acute Code(s): I63.532 - Cerebral infarction due to unspecified occlusion or stenosis of left posterior cerebral artery Plan #Acute left PRN PHYSICAL THERAPIST stroke * on aspirin and high intensity statin * plavix to be commenced after she is evaluated by ENT for right parotid mass and probable biopsy * to be on dual antiplatelet therapy for 3 weeks, then to continue on aspirin only * PT.OT on board * EEG showed no evidence of seizure * ESR mildly elevated at 37; CRP is WNL at <2.9. * will benefit from event monitor at time of discharge * #Right parotid gland mass * as per MRI, which showed a 1.9cm parotid mass, suspicious for neoplasm * awaiting evaluation by ENT and biopsy * #Debility and failure to thrive * due to stroke as well as dementia and spinal stenosis * PT/OT on board. * fall precautions * #TYpe 2 diabetes mellitus * Lantus increased to 28 units twice daily. Insulin sliding scale. Accu-Cheks ACH S. * A1c was more than 14. * #hypertension: On amlodipine and lisinopril 2.5mg daily. IV hydralazine as needed. #Hyperlipidemia: On statin #Spinal stenosis * Has moderate disc bulge at L3-4 resulting in moderate spinal stenosis and mild bilateral foraminal narrowing with mild disc bulge eccentric to the right at L4-5 resulting in mild spinal canal stenosis, moderate right foraminal narrowing and probable right nerve root impingement. * PT/OT on board. * Fall precautions * follow up with spinal surgery on outpatient basis * #Alzheimer's dementia: On Namenda. DVT prophylaxis: Heparin Disposition: will need placement Allergies/Procedures Done in Hospital Allergies Penicillins Allergy (Verified 07/20/22 15:51) Rash Procedures: 2-D Echocardiogram Type of Care/Length of Stay Estimated LOS: Convalescent Care Less Than 30 days Type of Care Needed: Skilled Rehab Potential: Fair Prognosis: Fair Additional Orders/Day of Discharge Day of Discharge: 07/25/22 Dietary and Speech Recommendations Dietitian Recommendations/Changes: continue consistent CHO, 1800 calorie controlled diet as tolerated; Glucerna ONS if PO at meals fails Discharge Plan Admission Admit Date/Time: 07/21/22 14:59 Primary Reason for Your Visit: ACUTE CVA Attending Provider: Ronna Garcia Primary Care Provider: Ron Martin Consulting Providers: Deirdre Kirk ; Pravin Dinh ; Sabra Lowe Instructions Patient Instructions: Discharge Instructions for Stroke Discharge Orders/Prescriptions Prescriptions: New insulin glargine-yfgn 100 unit/mL (3 mL) Insulin Pen 28 unit subcut BID Qty: 15 1RF aspirin 81 mg Tablet,Chewable 81 mg PO BREAKFAST Qty: 30 1RF atorvastatin 40 mg Tablet 40 mg PO 2200 Qty: 30 1RF clopidogrel 75 mg Tablet 75 mg PO DAILY Qty: 21 0RF lisinopril 2.5 mg Tablet 2.5 mg PO DAILY Qty: 30 1RF Continued cyanocobalamin (vitamin B-12) 500 mcg tablet 500 mcg PO DAILY amlodipine 10 mg tablet 10 mg PO DAILY memantine 5 mg tablet 5 mg PO BID cholecalciferol (vitamin D3) [Vitamin D3] 25 mcg (1,000 unit) Tablet 25 mcg PO DAILY Discontinued atorvastatin 20 mg tablet 20 mg PO DAILY insulin degludec [Tresiba FlexTouch U-100] 100 unit/mL (3 mL) insulin pen 28 unit SUBCUT DAILY insulin degludec [Tresiba FlexTouch U-100] 100 unit/mL (3 mL) insulin pen 15 unit SUBCUT QPM Rx Instructions: INJECT 28 UNITS SUBCUTANEOUSLY EVERY MORNING WITH BREAKFAST AND 15 UNITS SUBCUTANEOUSLY WITH DINNER. Referrals / Follow Up: Ron Martin MD [Primary Care Provider] - Within 1 Week Agustin Ross MD [Non-Staff -Ordering Privileges] - Within 2 Weeks Disposition Disposition (needs filled in before D/C Order can be placed): [facility] Facility
--- NOTE | 2022-07-25 13:48 | PCM.DC.SUM ---
Providers Date of Admission: 07/21/22 Date of Discharge: 07/25/22 Primary Care Physician: Dr. 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 will benefit from event monitor at time of discharge #Right parotid gland mass as per MRI, which showed a 1.9cm parotid mass, suspicious for neoplasm awaiting evaluation by ENT and biopsy #Debility and failure to thrive due to stroke as well as dementia and spinal stenosis PT/OT on board. fall precautions #TYpe 2 diabetes mellitus Lantus increased to 28 units twice daily. Insulin sliding scale. Accu-Cheks ACH S. A1c was more than 14. #hypertension: On amlodipine and lisinopril 2.5mg daily. IV hydralazine as needed. #Hyperlipidemia: On statin #Spinal stenosis Has moderate disc bulge at L3-4 resulting in moderate spinal stenosis and mild bilateral foraminal narrowing with mild disc bulge eccentric to the right at L4-5 resulting in mild spinal canal stenosis, moderate right foraminal narrowing and probable right nerve root impingement. PT/OT on board. Fall precautions follow up with spinal surgery on outpatient basis #Alzheimer's dementia: On Namenda. DVT prophylaxis: Heparin Disposition: will need placement Medications at Discharge Home Medications amlodipine 10 mg tablet 10 mg PO DAILY blood pressure 07/20/22 cholecalciferol (vitamin D3) 25 mcg (1,000 unit) tablet (Vitamin D3) 25 mcg PO DAILY supplement 07/20/22 cyanocobalamin (vitamin B-12) 500 mcg tablet 500 mcg PO DAILY supplement 07/20/22 memantine 5 mg tablet 5 mg PO BID alzheimers 07/20/22 aspirin 81 mg chewable tablet 81 mg PO BREAKFAST #30 tabs 07/25/22 atorvastatin 40 mg tablet 40 mg PO 2200 #30 tabs 07/25/22 clopidogrel 75 mg tablet 75 mg PO DAILY #21 tabs 07/25/22 insulin glargine-yfgn 100 unit/mL (3 mL) subcutaneous pen 28 unit (0.28 mL) subcut BID #15 mL 07/25/22 lisinopril 2.5 mg tablet 2.5 mg PO DAILY #30 tabs 07/25/22 Hospital Course Operations None Procedures 2-D Echocardiogram Summary of Care Provided Minutes Spent on Discharge: 45 Hospital Course: Patient is a 72-year-old female with a past medical history as outlined was admitted through the ED on 07/20/2022 with complaint of generalized weakness and inability to walk for several days prior to admission. She had been admitted at [facility] on first July after going there with confusion and was found to be hyperglycemic with A1c of 19. At that time was recommended she go to a senior care facility but family decided to take fpc. After taking her home it was noticed that patient had been falling and had trouble standing and has been confused. She went to [facility] and was discharged home from there with home PT OT. She was evaluated by physical therapy and the day before admission was found to be weak and unable to stand on her right leg. Family could not care for her at that point so she was brought into the ED. CBC was unremarkable and CMP was also largely unremarkable. Urinalysis showed evidence of UTI. CT of the brain showed no acute intracranial pathology. She was admitted and managed for debility with right lower extremity weakness to rule out a stroke. Her worsening confusion was thought to be due to her dementia. CT of the head and neck showed an incidental finding of a right parotid mass. MRI of the brain showed acute left MILITARY SCIENCE TEACHER stroke. [facility] neurology was consulted. She was placed on aspirin and high intensity statin. She was to be placed on Plavix as well but due to the incidental finding of the right parotid mass this was held off until she was evaluated by ENT. ENT determined that she could follow-up on outpatient basis for biopsy to be scheduled after she was done with the dual antiplatelet therapy. She had EEG which showed no evidence of seizure. She was placed on plavix, to be on dual antiplatelet therapy for 3 weeks. She was discharged to SNF on 07/25/2022. A 30 day event monitor was ordered for the patient. She is to follow up with her PCP and was referred to follow up with neurology on outpatient basis. Patient seen and examined prior to discharge. She had no complaints and had an uneventful night. Review of systems was otherwise negative. Labs and vitals reviewed. Home meds reviewed and reconciled Physical Exam Const alert, oriented x3 and no apparent distress General Appearance: cooperative and comfortable Orientation / Consciousness: confused Exam Limitations: no limitations HEENT normocephalic, head/scalp atraumatic, hearing grossly normal bilaterally, moist oral mucous membranes and oropharynx normal Mouth: oral and palatal mucosa normal Eyes PERRL, EOMs intact bilaterally and conjunctivae normal Eyes Narrative: No scleral icterus Neck no lymphadenopathy, supple and no JVD Resp normal respiratory effort, no retractions, no use of accessory muscles and clear to auscultation bilaterally Auscultation: Negative for crackles, rhonchi or wheezes Cardio regular rate, regular rhythm, S1 normal heart sound, S2 normal heart sound, no murmurs, no rub, no gallops and no clicks GI normal to inspection, nondistended, normoactive bowel sounds, soft to palpation and non-tender Extremity normal to inspection, full ROM and no clubbing, cyanosis or edema Extremity Narrative: 2+ pedal pulses Skin no rashes or lesions noted Neuro oriented x3, CN's II-XII intact bilaterally, moves all extremities, no focal motor deficits and no sensory deficits noted Neuro Narrative: flat affect Sensorium / Orientation: awake and alert Speech: speech normal Motor Exam: strength 5/5 throughout Psych affect normal Psych Narrative: flat affect Weight / BMI Weight Weight: 131 lb 9.855 oz Body Mass Index (BMI) 22.1 ABG / Lab / Microbiology Data Result Diagrams: 07/25/22 04:28 07/25/22 04:28 Laboratory: Laboratory Results - last 24 hr 07/24/22 16:55: POC Glucose 77 07/24/22 22:07: POC Glucose 213 H 07/25/22 04:28: WBC 8.4, RBC 5.15, Hgb 14.9, Hct 46.6, MCV 90.5, MCH 28.9, MCHC 32.0, RDW Std Deviation 41.7, RDW Coeff of Baron 12.7, Plt Count 351, MPV 9.4, Immature Gran % (Auto) 0.500, Neut % (Auto) 51.8, Lymph % (Auto) 35.9, [place] % (Auto) 8.7, Eos % (Auto) 2.3, Baso % (Auto) 0.8, Absolute Neuts (auto) 4.4, Absolute Lymphs (auto) 3.02, Nucleated RBC % 0 07/25/22 04:28: Sodium 137, Potassium 3.8, Chloride 108 H, Carbon Dioxide 22.0, Anion Gap 7, BUN 15, Creatinine 0.74, Estim Creat Clear Calc 43.91, Est GFR (MDRD) Af Amer 99, Est GFR (MDRD) Non-Af 82, BUN/Creatinine Ratio 20.3 H, Glucose 130 H, Calcium 9.7 07/25/22 06:31: POC Glucose 166 H 07/25/22 11:15: POC Glucose 254 H Microbiology: Microbiology 07/25/22 13:05 Nasal Secretion SARS-CoV-2 Antigen (Rapid) - Final D/C Instructions Discharge Diet: Low fat / Low cholesterol Discharge Activity: Return to Normal Activity Weight Bearing Status: Weight bearing as tolerated Call your doctor if you observe: Fever of 101 or Higher, Shortness of breath and Dizziness Meaningful Use Info Meaningful Use Diagnoses (Choose all that apply): Hemorrhagic CVA CVA Therapy Assessed for PT,OT and/or ST?: Yes Ischemic Stroke Antithrombotic order at d/c?: Yes Dx of Atrial fib/flutter?: No Anticoagulant at discharge?: No Reason anticoagulant not ordered: Treatment not Indicated Statins at discharge?: Yes Primary Dx Acute Ischemic CVA?: Yes Reason IV t-PA not ordered: Treatment not Indicated Discharge Plan Admission Admit Date/Time: 07/21/22 14:59 Primary Reason for Your Visit: ACUTE CVA Attending Provider: Ronna Garcia Primary Care Provider: Ron Martin Consulting Providers: Deirdre Kirk ; Pravin Dinh ; Sabra Lowe Instructions Patient Instructions: Discharge Instructions for Stroke Discharge Orders/Prescriptions Prescriptions: New insulin glargine-yfgn 100 unit/mL (3 mL) Insulin Pen 28 unit subcut BID Qty: 15 1RF aspirin 81 mg Tablet,Chewable 81 mg PO BREAKFAST Qty: 30 1RF atorvastatin 40 mg Tablet 40 mg PO 2200 Qty: 30 1RF clopidogrel 75 mg Tablet 75 mg PO DAILY Qty: 21 0RF lisinopril 2.5 mg Tablet 2.5 mg PO DAILY Qty: 30 1RF Continued cyanocobalamin (vitamin B-12) 500 mcg tablet 500 mcg PO DAILY amlodipine 10 mg tablet 10 mg PO DAILY memantine 5 mg tablet 5 mg PO BID cholecalciferol (vitamin D3) [Vitamin D3] 25 mcg (1,000 unit) Tablet 25 mcg PO DAILY Discontinued atorvastatin 20 mg tablet 20 mg PO DAILY insulin degludec [Tresiba FlexTouch U-100] 100 unit/mL (3 mL) insulin pen 28 unit SUBCUT DAILY insulin degludec [Tresiba FlexTouch U-100] 100 unit/mL (3 mL) insulin pen 15 unit SUBCUT QPM Rx Instructions: INJECT 28 UNITS SUBCUTANEOUSLY EVERY MORNING WITH BREAKFAST AND 15 UNITS SUBCUTANEOUSLY WITH DINNER. Other Ambulatory Orders: 30 Day Event Recorder Preventi (Urgent) Timeframe: 1 Day Facility: [facility] - Location: Cardiovascular Services Ordered By: Dr. Ronna Garcia Referrals / Follow Up: Ron Martin MD [Primary Care Provider] - Within 1 Week Agustin Ross MD [Non-Staff -Ordering Privileges] - Within 2 Weeks Disposition Disposition (needs filled in before D/C Order can be placed): [facility] Facility Charges/Coding Visit Charges Inpatient E&M: 18309 Disch Hosp
--- NOTE | 2022-07-25 14:17 | CASEMGMT ---
Discharge Neuropsychology Division Chief This racebook writer sent d/c orders to [facility] via [facility]. [facility] will pick patient up at 4:00pm. Nursing staff made aware. Bill ROLLINS Business Support Coordinator
--- NOTE | 2022-07-25 14:33 | CASEMGMT ---
MACO spoke with Noemi at [facility]. She did receive orders, picket labor union time, and PASRR via [facility]. Plan: d/c to [facility] under skilled level of care on a PASRR as patient was originally observation status in the hospital. [facility] will transport patient via cot. Nai MENDEZ
--- NOTE | 2022-07-25 15:11 | PHA.DC.MR ---
Pharmacy Service has performed discharge medication reconciliation for this patient. The patient's discharge medication list was reviewed for discrepancies and discrepancies were resolved. Home Medications amlodipine 10 mg tablet 10 mg PO DAILY blood pressure 07/20/22 cholecalciferol (vitamin D3) 25 mcg (1,000 unit) tablet (Vitamin D3) 25 mcg PO DAILY supplement 07/20/22 cyanocobalamin (vitamin B-12) 500 mcg tablet 500 mcg PO DAILY supplement 07/20/22 memantine 5 mg tablet 5 mg PO BID alzheimers 07/20/22 aspirin 81 mg chewable tablet 81 mg PO BREAKFAST #30 tabs 07/25/22 atorvastatin 40 mg tablet 40 mg PO 2200 #30 tabs 07/25/22 clopidogrel 75 mg tablet 75 mg PO DAILY #21 tabs 07/25/22 insulin glargine-yfgn 100 unit/mL (3 mL) subcutaneous pen 28 unit (0.28 mL) subcut BID #15 mL 07/25/22 lisinopril 2.5 mg tablet 2.5 mg PO DAILY #30 tabs 07/25/22
== END 2022-07-25 16:45 | DRG 66 ==
LOC: ED 18:34 → MS3 20:53 → PCU 07-21 12:55
PROVIDERS: Internal Medicine; Admitting Provider Internal Medicine; Emergency Provider Emergency Medicine; PCP Family Medicine; Visit Provider Student in an Organized Health Care Education/Training Program
DX: I63.532 Cerebral infarction due to unspecified occlusion or stenosis of left posterior cerebral artery (principal); R62.7 Adult failure to thrive; F02.80 Dementia in other diseases classified elsewhere, unspecified severity, without behavioral disturbance, psychotic disturbance, mood disturbance, and anxiety; G30.9 Alzheimer's disease, unspecified; E11.65 Type 2 diabetes mellitus with hyperglycemia; Z79.4 Long term (current) use of insulin; G83.11 Monoplegia of lower limb affecting right dominant side; E87.6 Hypokalemia; I10 Essential (primary) hypertension; E78.5 Hyperlipidemia, unspecified; D49.0 Neoplasm of unspecified behavior of digestive system; M51.26 Other intervertebral disc displacement, lumbar region; M48.061 Spinal stenosis, lumbar region without neurogenic claudication; Z91.14 Patient's other noncompliance with medication regimen; Z68.22 Body mass index [BMI] 22.0-22.9, adult; R29.6 Repeated falls; Z20.822 Contact with and (suspected) exposure to COVID-19; Z79.82 Long term (current) use of aspirin; Z79.84 Long term (current) use of oral hypoglycemic drugs; Z79.899 Other long term (current) drug therapy
CPT/HCPCS: 36415; 70450; 70551; 72100; 72148; 80048; 80053; 80061; 81001; 82009; 82607; 82962; 83036; 84443; 85025; 85652; 86140; 87426; 92507; 92526; 92611; 93005; 93306; 94762; 95819; 97110; 97162; 97166; 97530; 97535; 97802; 99251; 99285; 99406; J7030; A4216; G0463